=== PATIENT | male | born 1935 | race Caucasian/White ===

== ENCOUNTER → 2023-06-10 | Outpatient (CLI) | payer MEDICARE, OTHER | END | disposition home or self-care (01) | LOC: RESCLI 12:40 | PROVIDERS: ATTEND Internal Medicine | DX: H40.9 Unspecified glaucoma (principal); C61 Malignant neoplasm of prostate; J45.909 Unspecified asthma, uncomplicated; I10 Essential (primary) hypertension; M06.9 Rheumatoid arthritis, unspecified; Z98.890 Other specified postprocedural states; Z88.0 Allergy status to penicillin; Z79.899 Other long term (current) drug therapy ==